=== PATIENT | female | born 1975 | race Hispanic/Latino ===

== ENCOUNTER 2017-11-02 01:20 | Inpatient (IN) | payer OTHER, SELFPAY ==
[2017-11-02] MEDS ORDERED: diphenhydrAMINE 50 MG/ML VIAL ONE (01:41)
[2017-11-02 02:22] LABS: ALT (SGPT) 27 U/L (8-55); AST (SGOT) 44 U/L (5-34); Albumin 4.1 g/dL (3.5-5.0); Alkaline Phosphatase 110 U/L (40-150); Anion Gap 16 mmol/L (10-20); BUN (Urea Nitrogen) 8 mg/dL (7.0-18.7); Bilirubin, Total 0.5 mg/dL (0.2-1.2); Calc. Creatinine Clearance 0 mL/min (70-130); Calcium 9.3 mg/dL (7.8-10.44); Carbon Dioxide 21 mmol/L (22-29); Chloride 101 mmol/L (98-107); Estimated GFR-MDRD 86; Globulin 3.7 g/dL (2.4-3.5); Glucose 103 mg/dL (70-105); Protein, Total 7.8 g/dL (6.0-8.3); Sodium 135 mmol/L (136-145)
[2017-11-02 02:25] LABS: Band 3 % (5-11); CKMB 1.6 ng/mL (0-6.6); Hemoglobin 13.1 g/dL (12.0-16.0); Hypersemented Neutrophil SLIGHT; Lymphocytes 12 % (21-51); MDiff Complete? YES; Mean Corpuscular HGB CONC 34.5 g/dL (32.0-36.0); Mean Corpuscular Hemoglobin 28.6 pg (27.0-31.0); Mean Corpuscular Volume 82.9 fl (81.0-99.0); Mean Platelet Volume 8.1 fL (7.4-10.4); Monocytes 3 % (0-10); Neutrophil 82 % (42-75); Platelet Count 342 thou/uL (130-400); RBC Distribution Width 12.6 % (11.5-14.5); Red Blood Cell (RBC) Count 4.57 mill/uL (4.20-5.40); Troponin I Less than 0.010 ng/mL (< 0.028); White Blood Cell (WBC) Count 26.3 thou/uL (4.8-10.8)
[2017-11-02] MEDS ORDERED: methylPREDNISolone Sod Succ/PF 125 MG/2 ML VIAL ONE (02:29)
[2017-11-02] MEDS ORDERED: Albuterol Sulfate 2.5 mg/0.5 ml Neb ONE ×2 (02:30→03:52)
[2017-11-02] MEDS ORDERED: Potassium Chloride 20 MEQ TAB ONE (02:33)
[2017-11-02] MEDS ORDERED: cefTRIAXone\\ROCEPHIN 1 GM VIAL ONE ×2 (04:14→05:54)
[2017-11-02] MEDS ORDERED: Sodium Chloride 0.9% 100 ML ONE (04:14)
[2017-11-02 04:54] LABS: Troponin I Less than 0.010 ng/mL (< 0.028)
[2017-11-02] MEDS ORDERED: Azithromycin 500 MG VIAL ONE (04:56)
[2017-11-02 05:47] LABS: Bilirubin Negative (Negative); Blood, Urine Small (Negative); Clarity Clear (Clear); Glucose, Urine (Dipstick) Negative (Negative); Leukocyte Negative (Negative); Nitrite Negative (Negative); Protein, Urine (Dipstick) Negative (Neg-Trace)
[2017-11-02 06:01] LABS: Bacteria/HPF None Seen HPF (None Seen); Hyaline Casts/LPF 0-3 HYALINE CAST LPF (0-3 Hyaline); RBC/HPF 0-3 HPF (0-3); Squamous Epithelial 0-3 HPF (0-3); WBC/HPF 0-3 HPF (0-3)
--- NOTE | 2017-11-02 08:03 | RAD ---
CHEST 2 VIEWS: History Cough. Dyspnea. COMPARISON: 09/12/07. FINDINGS: Cardiac silhouette is unremarkable. Pulmonary vasculature is slightly engorged with widespread retic ulonodular interstitial prominence. Mediastinum is midline. No confluent airspace consolidation, pn eumothorax, or pleural fluid. IMPRESSION: Mild pulmonary vascular congestion with widespread reticulonodular interstitial prominence. Cause is not evident. Please see report from subsequently performed CT arteriogram chest. POS: OFF
--- NOTE | 2017-11-02 08:28 | CT ---
PRELIMINARY REPORT/[facility]/EMERGENTY AFTER-HOURS PROCEDURE CT Angiography Chest With Intravenous Contrast CLINICAL HISTORY: 42 years old, female; Signs and symptoms; Cough and shortness of breath; Smoker's cough; Patient HX: Cough and SOB since 1700 yesterday, pt is a smoker and takes high BP with a diuretic TECHNIQUE: Axial computed tomographic angiography images of the chest with intravenous contrast using pulmonary embolism protocol. All CT scans at this facility use one or more dose reduction techniques, viz.: aut omated exposure control; ma/kV adjustment per patient size (including targeted exams where dose is ma tched to indication; i.e. head); or iterative reconstruction technique. Coronal reformatted images were created and reviewed. CONTRAST: 80 mL of [id number] administered intravenously. COMPARISON: No relevant prior studies available. FINDINGS: Pulmonary arteries: Unremarkable. No pulmonary embolism. Aorta: No acute findings. No thoracic aortic aneurysm. Lungs: Extensive symmetric centrally distributed bilateral ground glass opacification in both lungs. No septal thickening, fibrosis, nodules, or bronchial wall thickening. Pleural space: Unremarkable. No significant effusion. No pneumothorax. Heart: Unremarkable. No cardiomegaly. No significant pericardial effusion. No evidence of RV dysfunct ion. Mediastinum: Esophagus is unremarkable. Bones/joints: No acute fracture. No dislocation. Soft tissues: Unremarkable. Lymph nodes: Unremarkable. No enlarged lymph nodes. Liver: Hepatomegaly and hepatic steatosis. Gallbladder and bile ducts: Prior cholecystectomy. IMPRESSION: 1. Extensive symmetric centrally distributed bilateral ground glass opacification in both lungs. Diff erential diagnosis is atypical pulmonary infection, flash hydrostatic pulmonary edema, ARDS, hypersen sitivity pneumonitis, medication toxicity, or pulmonary hemorrhage. Consider pulmonary medicine consu ltation. 2. Hepatomegaly and hepatic steatosis. Thank you for allowing us to participate in the care of your patient. Dictated and Authenticated by: Ravinder Stoddard MD 11/02/2017 5:22 AM Central Time ([place] & [place]) CT ARTERIOGRAM CHEST WITH IV CONTRAST AND 3D MIP IMAGING: DATE: 11/02/17. TIME: Performed on an emergency basis at 0443 hours. HISTORY: Chest pain. Dyspnea. FINDINGS: Findings agree with the preliminary report from [facility]. There is no CT evidence of pulmon johanna embolus. Symmetric bilateral predominantly perihilar ground-glass opacity is nonspecific and may be related to infectious process, pulmonary edema, or hypersensitivity pneumonitis. POS: OFF
[2017-11-02] MEDS ORDERED: Levothyroxine Sodium 100 MCG TAB PO SCH (09:15)
[2017-11-02] MEDS: Sodium Chloride 0.9% 1,000 ML IV SCH ×3 (09:54→21:51)
[2017-11-02] MEDS: Loratadine 10 MG TAB PO SCH (09:54)
[2017-11-02] MEDS: Enoxaparin Sodium 40 MG/0.4 ML SYRINGE SC SCH (09:54)
--- NOTE | 2017-11-02 10:34 | PDOC.FPRHP ---
- History of Present Illness Chief Complaint: Persistent/worsening cough History of Present Illness: Ms. Forbes is a [address] Hernandez who presents as a transfer of care from [facility] ER for hypoxia requiring supplemental O2. She states that she has had a nagging cough for a little while but it acutely got worse at 2200 last night and she could not catch her breath. She states that is scared her so she asked her to take her to the ER. She is not sure if she had any fever but endorses chills. She had otherwise been feeling well and denies sick contacts, recent travel or exposure to allergens/pets/birds. She used to work at a [employer] company making [employer] 20 years ago. 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 She also continues to smoke 1 ppd. She denies any other associated symptoms including n/v/d/rashes/lesions/abdominal pain/chest pain. ED Course: Patient reports being given antibiotics at outside ER. She continued to require supplemental O2. Blood cultures drawn. - Allergies/Adverse Reactions Allergies Allergy/AdvReac Type Severity Reaction Status Date / Time No Known Allergies Allergy Verified 06/12/16 22:43 - Home Medications Medication Instructions Recorded Confirmed Type Levothyroxine Sodium [Synthroid] 100 mcg PO DAILY 06/12/16 11/02/17 History Dextroamphetamine/Amphetamine 30 mg PO BID 11/02/17 11/02/17 History [Adderall] Venlafaxine HCl [Effexor XR] 150 mg PO DAILY 11/02/17 11/02/17 History - History PMHx: Hypothyroidism, depression, anxiety PSHx: Hysterectomy, tubal ligation, cholecystectomy FHx: Allergy-related asthma, denies any DM/HTN/lung disease Social: 1ppd smoker x22 years, denies alcohol or other drug use - Review of Systems General: reports: fever/chills, fatigue. denies: weight/appetite/sleep changes Eyes: denies: eye pain, vision changes ENT: reports: nasal congestion, rhinorrhea Respiratory: reports: cough, congestion, shortness of breath Cardiovascular: denies: chest pain, palpitation, edema, paroxysmal nocturnal dyspnea Gastrointestinal: denies: nausea, vomiting, diarrhea, constipation, abdominal pain Genitourinary: denies: dysuria, polyuria Skin: denies: rashes, lesions Musculoskeletal: denies: pain, swelling Neurological: denies: syncope, weakness Psychological: reports: anxiety, depression - Vital signs BP: [123/83] HR: [83] RR: [20] Tmax: [98.7] Pox: [97]% on [2L] Wt: [87.1kg] - Physical Exam Constitutional: awake, alert and oriented -Constitutional: appears slightly uncomfortable, NC in place HEENT: normocephalic and atraumatic, conjunctiva clear, MMM, oropharynx clear -HEENT: Frontal and maxillary sinus TTP BL Neck: supple, trachea midline Chest: no-tender to palpation, no lesions Heart: RRR, normal S1/S2, no murmurs/rubs/gallops, no edema -Lungs: faint crackles in L lung base, cough with any significant inspiration Abdomen: soft, non-tender Musculoskeletal: normal structure, normal tone Neurological: no focal deficit, CN II-XII intact, normal sensation Skin: no rash/lesions, good turgor, capillary refill <2 seconds Heme/Lymphatic: no unusual bruising or bleeding, no LAD Psychiatric: normal mood and affect, good judgment and insight, intact recent and remote memory FMR H&P: Results - Labs Result Diagrams: 11/02/17 01:45 11/02/17 01:45 Lab results: WBC 26.3 thou/uL (4.8-10.8) H 11/02/17 01:45 Hgb 13.1 g/dL (12.0-16.0) 11/02/17 01:45 Hct 37.9 % (36.0-47.0) 11/02/17 01:45 MCV 82.9 fl (81.0-99.0) 11/02/17 01:45 Plt Count 342 thou/uL (130-400) 11/02/17 01:45 Band Neuts % (Manual) 3 % (5-11) L 11/02/17 01:45 Sodium 135 mmol/L (136-145) L 11/02/17 01:45 Potassium 3.0 mmol/L (3.5-5.1) L 11/02/17 01:45 Chloride 101 mmol/L (98-107) 11/02/17 01:45 Carbon Dioxide 21 mmol/L (22-29) L 11/02/17 01:45 BUN 8 mg/dL (7.0-18.7) 11/02/17 01:45 Creatinine 0.74 mg/dL (0.6-1.1) 11/02/17 01:45 Glucose 103 mg/dL (70-105) 11/02/17 01:45 Lactic Acid 1.9 mmol/L (0.5-2.2) 11/02/17 04:15 Calcium 9.3 mg/dL (7.8-10.44) 11/02/17 01:45 Total Bilirubin 0.5 mg/dL (0.2-1.2) 11/02/17 01:45 AST 44 U/L (5-34) H 11/02/17 01:45 ALT 27 U/L (8-55) 11/02/17 01:45 Alkaline Phosphatase 110 U/L (40-150) 11/02/17 01:45 CK-MB (CK-2) 1.6 ng/mL (0-6.6) 11/02/17 01:45 B-Natriuretic Peptide Less than 10.0 pg/mL (0-100) 11/02/17 01:45 Serum Total Protein 7.8 g/dL (6.0-8.3) 11/02/17 01:45 Albumin 4.1 g/dL (3.5-5.0) 11/02/17 01:45 Urine Ketones Negative mg/dL (Negative) 11/02/17 05:35 Urine Blood Small (Negative) H 11/02/17 05:35 Urine Nitrite Negative (Negative) 11/02/17 05:35 Ur Leukocyte Esterase Negative (Negative) 11/02/17 05:35 Urine RBC 0-3 HPF (0-3) 11/02/17 05:35 Urine WBC 0-3 HPF (0-3) 11/02/17 05:35 Ur Squamous Epith Cells 0-3 HPF (0-3) 11/02/17 05:35 Urine Bacteria None Seen HPF (None Seen) 11/02/17 05:35 FMR H&P: A/P - Problem List (1) Atypical pneumonia Current Visit: Yes Status: Acute Code(s): J18.9 - PNEUMONIA, UNSPECIFIED ORGANISM (2) Hypothyroidism Current Visit: Yes Status: Acute Code(s): E03.9 - HYPOTHYROIDISM, UNSPECIFIED (3) Anxiety Current Visit: Yes Status: Acute Code(s): F41.9 - ANXIETY DISORDER, UNSPECIFIED (4) Depression Current Visit: Yes Status: Acute Code(s): F32.9 - MAJOR DEPRESSIVE DISORDER , SINGLE EPISODE, UNSPECIFIED (5) HTN (hypertension) Current Visit: Yes Status: Acute Code(s): I10 - ESSENTIAL (PRIMARY) HYPERTENSION (6) HLD (hyperlipidemia) Current Visit: Yes Status: Acute Code(s): E78.5 - HYPERLIPIDEMIA, UNSPECIFIED (7) ADHD (attention deficit hyperactivity disorder) Current Visit: Yes Status: Acute (8) Allergic rhinitis Current Visit: Yes Status: Acute Code(s): J30.9 - ALLERGIC RHINITIS, UNSPECIFIED - Plan 1. Atypical PNA - Continue supplemental O2 to maintain sat 92% - Encouraged smoking cessation which she states she is ready to do - Duonebs PRN - Levaquin per Dr. Atkinson for total of 1 week pending course - BCx pending 2. Sinusitis - TTP in frontal and maxillary sinus - Has seen ENT outpatient who recommend balloon cath - Abx as above, flonase and claritin - Encouraged hydration 3. Tobacco abuse - Encouraged smoking cessation which she states she is ready to do - Nicotine patch 4. Hypothyroidism - Home levothyroxine, per last refill patient was on 125 mcg - Last TSH checked 1 year ago, will recheck 5. Allergic rhinitis - Home flonase and zyrtec OTC 6. Anxiety/depression - Home Effexor XR 150 mg 7. Hypertension - Home HCTZ 25 mg 8. ADHD - On Adderall at home 20mg BID - Will hold unless patient symptomatic during hospitalization 9. HLD - OP f/u with Dr. Dc PPX: Lovenox Attending Addendum - Attending Addendum Date/Time: 11/02/17 5329 I personally evaluated the patient and discussed the management with Dr. Arellano and Dr. Naga Matson. I agree with the History, Examination, Assessment and Plan documented above with any addition or exceptions noted below. She is a 42 y/o female smoker reports a 2 day hx of non-productive cough, dyspnea, malaise and chills, but no fever. No chest pain or hemoptysis. Did not have flu shot this year. Agrees she needs to quit tobacco. BP: 123/83 P: 83 R: 20 T: 98.7 Pox: 97% on 2L/NC Wt: 87.1kg General: Alert oriented female with intermittent cough in no acute distress. HEENT: normocephalic and atraumatic, conjunctiva clear, MMM, oropharynx clear Neck: supple, no adenopathy, trachea midline Chest: no-tender to palpation, no lesions Heart: RRR, normal S1/S2, no murmurs/rubs/gallops, no edema Lungs: equal breath sounds with no rales or rhonci on my exam. She coughs with deep breathing. Abdomen: soft, non-tender Musculoskeletal: norfull ROM all 4 extremities, no edema. Neurological: no focal deficit, CN II-XII intact, grossly normal motor and sensory exam. Skin: no rash or lesions, good turgor, capillary refill <2 seconds Heme/Lymphatic: no unusual bruising or lymphadenopathy Psychiatric: normal mood, memory and affect, good judgment and insight, CXR appears normal. However, she has bilateral lower lobe infiltrates visible on Chest CT. A: Atypical Pneumonia P: Continue Levaquin. Consult Pulmonary medicine. Dr. Atkinson. Blood Cultures pending. Discussed smoking cessation. Marcia
[2017-11-02] MEDS: Venlafaxine HCl XR 75 MG CAP PO SCH (11:40)
--- NOTE | 2017-11-02 12:30 | CON ---
DATE OF CONSULTATION: 11/02/2017 CONSULTING PHYSICIAN: [facility]. REASON FOR CONSULTATION: Pneumonia, ICU admission. HISTORY OF PRESENT ILLNESS: This is a pleasant 42-year-old female, who presented to the [place] [facility] room with 1 day of increasing cough with clear mucoid sputum production and shortness of breat h. She has also had headaches, sinus tenderness, and problems with nasal drainage. She was worked u p with a CT, which showed bilateral pulmonary infiltrates. Characterizes wispy, ground-glass appeara nce and alveolar pattern distribution, sparing the periphery of the lungs. Interestingly, her D-dime r was negative. PAST MEDICAL HISTORY: Hypertension, hypothyroidism. PAST SURGICAL HISTORY: Cholecystectomy, hysterectomy, and bilateral tubal ligation. PSYCHIATRIC HISTORY: Remarkable for depression, anxiety. SOCIAL HISTORY: She is a 1 pack per day smoker. She does not consume alcohol, does not use illicit drugs. Lives at home. 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 No known exposures other than some household pet s, but no exposure to birds. ALLERGIES: None. MEDICATIONS PRIOR TO ADMISSION: Synthroid 100 mcg daily, Effexor 37.5 mg daily, and Vyvanse 40 mg ev angel morning. REVIEW OF SYSTEMS: Twelve-point review is otherwise negative. PHYSICAL EXAMINATION: VITAL SIGNS: Blood pressure 123/83, pulse 83, respirations 20, O2 saturation 97% on nasal cannula, a nd temperature is 98.7 earlier this morning. GENERAL: She is awake, alert, in no distress. HEENT: Pupils react. Sclerae icteric. She has mild sinus tenderness ethmoid and maxillary regions. Oropharynx, no tonsillar exudate, no erythema. NECK: Slight thyroid enlargement, no JVD, no bruits. LUNGS: Few crackles best heard posteriorly. CARDIOVASCULAR: S1 and S2, regular. ABDOMEN: Soft, nontender, nondistended. EXTREMITIES: No clubbing, cyanosis, or edema. NEUROLOGIC: Grossly intact throughout. SKIN: No changes. LABORATORY DATA: D-dimer 0.34. White blood cell count 26.3, hematocrit 37.9, platelet count 342 wit h 80% neutrophils, 3% bands. Sodium 135, potassium 3.0, chloride 101, CO2 of 21, BUN 8, creatinine 0 .7, glucose 103. Chest x-ray were reviewed. ASSESSMENT: Bilateral atypical pneumonia, most likely consistent with either mycoplasma or chlamydia . PLAN: 1. The patient can be transferred to the floor. She needs to starting antibiotics, breathing treatm ents. 2. Nicotine replacement therapy. 3. Further disposition to follow.
[2017-11-02] MEDS: Fluticasone Propionate Nasal Spray 16 gm Bottle NASAL SCH (14:03)
[2017-11-02] MEDS: Nicotine 14 MG PATCH TD SCH (14:06)
[2017-11-02] MEDS: Acetaminophen 500 MG TAB PO PRN (17:28)
[2017-11-02] MEDS ORDERED: Melatonin 3 MG TAB PO PRN (20:28)
[2017-11-02] MEDS ORDERED: ALPRAZolam 1 MG TAB PO SCH (20:30)
--- NOTE | 2017-11-03 04:57 | PDOC.FM ---
- Subjective Subjective: Patient doing well this AM. No significant overnight events. She states that her breathing has gotten better since admission, but she is still requiring O2. Her eyes have been very watery and irritated which she attributes to allergies. She states she has had a lingering cough, but it got worse on Wednesday to the point that she started to feel acutely short of breath. She still has a cough, but it has improved since that time. - Objective MAR Reviewed: Yes Vital Signs & Weight: Vital Signs (12 hours) Temp Pulse Resp BP Pulse Ox 11/03/17 02:23 85 20 96 11/03/17 01:27 97 11/03/17 00:00 98.5 F 86 18 102/66 93 L 11/02/17 22:47 89 20 97 11/02/17 20:00 98.1 F 99 22 H 117/71 93 L 11/02/17 19:06 91 20 96 Weight Weight 87.1 g Most Recent Monitor Data Heart Rate from ECG 79 NIBP 114/73 NIBP BP-Mean 84 Respiration from ECG 20 SpO2 95 I&O: 11/01/17 11/02/17 11/03/17 06:59 06:59 06:59 Intake Total 1999 Output Total 0 Balance 1999 Result Diagrams: 11/03/17 04:06 11/03/17 04:06 EKG Reviewed by me: No Radiology Reviewed by me: Yes <Sydnie Hawk - Last Filed: 11/03/17 08:33> - Objective Vital Signs & Weight: Vital Signs (12 hours) Temp Pulse Resp BP Pulse Ox 11/03/17 10:57 75 20 95 11/03/17 08:00 98.5 F 76 16 95 11/03/17 07:27 98.5 F 76 16 125/74 95 11/03/17 06:41 77 20 94 L 11/03/17 04:00 98.6 F 77 18 117/77 94 L 11/03/17 02:23 85 20 96 Weight Weight 87.1 g Most Recent Monitor Data Heart Rate from ECG 79 NIBP 114/73 NIBP BP-Mean 84 Respiration from ECG 20 SpO2 95 I&O: 11/02/17 11/03/17 11/04/17 06:59 06:59 06:59 Intake Total 3500 720 Output Total 0 Balance 3500 720 Result Diagrams: 11/03/17 04:06 11/03/17 04:06 <Olamide Dc - Last Filed: 11/03/17 14:19> Phys Exam - Physical Examination Constitutional: NAD HEENT: moist MMs Watery eyes Neck: supple rales on right upper and lower lobes Cardiovascular: RRR, no significant murmur Gastrointestinal: soft, non-tender, no distention, positive bowel sounds Musculoskeletal: no edema, pulses present Neurological: non-focal Psychiatric: normal affect Skin: no rash, cap refill <2 seconds <KennSydnie saavedra - Last Filed: 11/03/17 08:33> Dx/Plan (1) Atypical pneumonia Code(s): J18.9 - PNEUMONIA, UNSPECIFIED ORGANISM Status: Acute (2) HTN (hypertension) Code(s): I10 - ESSENTIAL (PRIMARY) HYPERTENSION Status: Acute QualifierTitle: Hypertension type: essential hypertension Qualified Code( s): I10 - Essential (primary) hypertension (3) Hypothyroidism Code(s): E03.9 - HYPOTHYROIDISM, UNSPECIFIED Status: Chronic (4) HLD (hyperlipidemia) Code(s): E78.5 - HYPERLIPIDEMIA, UNSPECIFIED Status: Chronic (5) Anxiety Code(s): F41.9 - ANXIETY DISORDER, UNSPECIFIED Status: Chronic (6) ADHD (attention deficit hyperactivity disorder) Status: Chronic (7) Depression Code(s): F32.9 - MAJOR DEPRESSIVE DISORDER, SINGLE EPISODE, UNSPECIFIED Status : Chronic - Plan Plan: 1. Atypical PNA - Continue supplemental O2 to maintain sat 92%; patient requiring 2.5 L - Encouraged smoking cessation - Junior VILLALOBOS - [place] per Dr. Atkinson for total of 1 week pending course - BCx pending - Pulm consulted; appreciate recs - Consider alternative diagnoses based on pt. work history 2. Sinusitis - TTP in frontal and maxillary sinuses - Has seen ENT outpatient who recommend balloon cath - Abx as above, flonase and claritin - Encouraged hydration - Improved today 3. Tobacco abuse - Encouraged smoking cessation which she states she is ready to do - Nicotine patch 4. Hypothyroidism - Home levothyroxine, per last refill patient was on 125 mcg - Last TSH checked 1 year ago - TSH 0.588 5. Allergic rhinitis - Home flonase and zyrtec OTC 6. Anxiety/depression - Home Effexor XR 150 mg 7. Hypertension - Home HCTZ 25 mg 8. ADHD - On Adderall at home 20mg BID - Will hold unless patient symptomatic during hospitalization 9. HLD - OP f/u with Dr. Dc PPX: Lovenox Dispo: Continue treatment for atypical pneumonia. Continue to monitor for improvement in O2 saturation. <Sydnie Hawk - Last Filed: 11/03/17 08:33> Attending Addendum - Attending Addendum Date/Time: 11/03/17 6162 I personally evaluated the patient and discussed the management with Dr. Hawk. I agree with the History, Examination, Assessment and Plan documented above with any addition or exceptions noted below. The patient is feeling a little better. Oxygen has weaned to 1.5 liters. Will continue levaquin. <Olamide Dc - Last Filed: 11/03/17 14:19>
[2017-11-03 05:14] LABS: #Lymphocytes 3.4 thou/uL (1.20-3.40); #Monocytes 0.6 thou/uL (0.11-0.59); #Neutrophils 17.4 thou/uL (1.40-6.50); %Basophils 0.1 % (0.0-1.0); %Eosinophils 0.2 % (0.0-10.0); %Lymphocytes 15.6 % (21.0-51.0); %Monocytes 2.8 % (0.0-10.0); %Neutrophils 81.2 % (42.0-75.0); Hemoglobin 11.3 g/dL (12.0-16.0); Mean Corpuscular HGB CONC 34.5 g/dL (32.0-36.0); Mean Corpuscular Hemoglobin 29.5 pg (27.0-31.0); Mean Corpuscular Volume 85.5 fl (81.0-99.0); Mean Platelet Volume 8.3 fL (7.4-10.4); Platelet Count 299 thou/uL (130-400); RBC Distribution Width 12.8 % (11.5-14.5); Red Blood Cell (RBC) Count 3.85 mill/uL (4.20-5.40); White Blood Cell (WBC) Count 21.5 thou/uL (4.8-10.8)
[2017-11-03] MEDS: Levothyroxine Sodium 100 MCG TAB PO SCH (05:19)
[2017-11-03 05:40] LABS: Anion Gap 12 mmol/L (10-20); BUN (Urea Nitrogen) 10 mg/dL (7.0-18.7); Calc. Creatinine Clearance 0 mL/min (70-130); Calcium 8.9 mg/dL (7.8-10.44); Carbon Dioxide 24 mmol/L (22-29); Chloride 107 mmol/L (98-107); Estimated GFR-MDRD Greater than 90; Glucose 129 mg/dL (70-105); Potassium 3.5 mmol/L (3.5-5.1); Sodium 139 mmol/L (136-145)
[2017-11-03] MEDS: Enoxaparin Sodium 40 MG/0.4 ML SYRINGE SC SCH (08:51)
[2017-11-03] MEDS: Fluticasone Propionate Nasal Spray 16 gm Bottle NASAL SCH (08:51)
[2017-11-03] MEDS: Venlafaxine HCl XR 75 MG CAP PO SCH (08:52)
[2017-11-03] MEDS: Nicotine 14 MG PATCH TD SCH (08:52)
[2017-11-03] MEDS: Loratadine 10 MG TAB PO SCH (08:52)
[2017-11-03] MEDS: Hydrochlorothiazide 25 MG TAB PO SCH (08:52)
[2017-11-03] MEDS ORDERED: hydrALAZINE 25 MG TAB PO SCH (09:00)
--- NOTE | 2017-11-03 10:53 | PDOC.PULPN ---
Progress Note: Subj/Obj - Subjective Date: 11/03/17 Time: 10:52 Narrative: Feels better - Objective Allergies/Adverse Reactions: Allergies Allergy/AdvReac Type Severity Reaction Status Date / Time No Known Allergies Allergy Verified 06/12/16 22:43 MAR Reviewed: Yes Vital Signs: Vital Signs Temp 98.5 F 11/03/17 08:00 Pulse 76 11/03/17 08:00 Resp 16 11/03/17 08:00 BP 125/74 11/03/17 07:27 Pulse Ox 95 11/03/17 08:00 Intake & Output 11/02/17 11/03/17 11/03/17 18:59 06:59 18:59 Intake Total 1999 1500 360 Output Total 0 Balance 1999 1500 360 Weight 3.072 oz Intake: Intake, IV Amount 800 1200 Oral 1200 300 360 Output: Urine 0 Other: Voiding Method Toilet Toilet Toilet # Measured Voids 3 # Unmeasured Voids 4 Progress Note: Exam - Physical Exam Constitutional: NAD HEENT: PERRLA Neck: no nodes Cardiovascular: RRR Respiratory: rales Gastrointestinal: soft, non-tender Musculoskeletal: no edema Neurological: non-focal Lymphatic: no nodes Psychiatric: normal affect, A&O x 3 Skin: no rash, normal turgor Progress Note: Data - Labs Result Diagrams: 11/03/17 04:06 11/03/17 04:06 Progress Note: A/P - Problems (1) Atypical pneumonia Current Visit: Yes Status: Acute Code(s): J18.9 - PNEUMONIA, UNSPECIFIED ORGANISM - Plan Plan: Complete 7 to 10 days of levaquin Needs f/u CXR in 3 weeks Smoking cessation Can go home when hypoxemia is controlled (>90% on RA)
[2017-11-03] MEDS: Sodium Chloride 0.9% 1,000 ML IV SCH ×2 (15:55→20:23)
[2017-11-03] MEDS: Acetaminophen 500 MG TAB PO PRN (20:29)
[2017-11-03 21:28] VITALS: BP 128/74
[2017-11-04] MEDS: Levothyroxine Sodium 100 MCG TAB PO SCH (05:13)
[2017-11-04] MEDS: Sodium Chloride 0.9% 1,000 ML IV SCH (05:16)
--- NOTE | 2017-11-04 06:31 | PDOC.FM ---
- Subjective Subjective: Patient doing well this AM. No significant overnight events. Patient's breathing has improved. She denies any chest pain, n/v, or lower extremity swelling. She still has a productive cough, which improves after breathing treatments. She has been going without oxygen and satting above 90%. - Objective MAR Reviewed: Yes Vital Signs & Weight: Vital Signs (12 hours) Temp Pulse Resp BP Pulse Ox 11/04/17 04:00 98.9 F 94 L 11/04/17 00:00 98.7 F 94 L 11/03/17 22:30 89 16 96 11/03/17 20:00 99.1 F 89 18 128/74 92 L 11/03/17 18:15 75 16 95 Weight Weight 87.1 g Most Recent Monitor Data Heart Rate from ECG 79 NIBP 114/73 NIBP BP-Mean 84 Respiration from ECG 20 SpO2 95 I&O: 11/02/17 11/03/17 11/04/17 06:59 06:59 06:59 Intake Total 3500 960 Output Total 0 Balance 3500 960 Result Diagrams: 11/03/17 04:06 11/03/17 04:06 EKG Reviewed by me: No Radiology Reviewed by me: Yes <Sydnie Hawk - Last Filed: 11/04/17 08:23> - Objective Vital Signs & Weight: Vital Signs (12 hours) Temp Pulse Resp Pulse Ox 11/04/17 10:32 82 20 96 11/04/17 08:00 98.9 F 82 20 96 Weight Weight 87.1 g Most Recent Monitor Data Heart Rate from ECG 79 NIBP 114/73 NIBP BP-Mean 84 Respiration from ECG 20 SpO2 95 I&O: 11/03/17 11/04/17 11/05/17 06:59 06:59 06:59 Intake Total 3500 2520 360 Output Total 0 Balance 3500 2520 360 Result Diagrams: 11/03/17 04:06 11/03/17 04:06 <Olamide Dc - Last Filed: 11/04/17 18:55> Phys Exam - Physical Examination Constitutional: NAD HEENT: moist MMs Neck: supple Rales in right lower lung base. Improved from prior exam. Cardiovascular: RRR, no significant murmur Gastrointestinal: soft, non-tender, no distention, positive bowel sounds Musculoskeletal: no edema, pulses present Neurological: non-focal, moves all 4 limbs Psychiatric: normal affect Skin: no rash, cap refill <2 seconds <KennSydnie - Last Filed: 11/04/17 08:23> Dx/Plan (1) Atypical pneumonia Code(s): J18.9 - PNEUMONIA, UNSPECIFIED ORGANISM Status: Acute (2) HTN (hypertension) Code(s): I10 - ESSENTIAL (PRIMARY) HYPERTENSION Status: Acute QualifierTitle: Hypertension type: essential hypertension Qualified Code( s): I10 - Essential (primary) hypertension (3) Hypothyroidism Code(s): E03.9 - HYPOTHYROIDISM, UNSPECIFIED Status: Chronic (4) HLD (hyperlipidemia) Code(s): E78.5 - HYPERLIPIDEMIA, UNSPECIFIED Status: Chronic (5) Anxiety Code(s): F41.9 - ANXIETY DISORDER, UNSPECIFIED Status: Chronic (6) ADHD (attention deficit hyperactivity disorder) Status: Chronic (7) Depression Code(s): F32.9 - MAJOR DEPRESSIVE DISORDER, SINGLE EPISODE, UNSPECIFIED Status : Chronic - Plan Plan: 1. Atypical PNA - Continue supplemental O2 to maintain sat 90%; patient weaned to 1.5L yesterday - Can discharge home once maintaining O2 sats >90% on RA - Encouraged smoking cessation - Junior CHAUDHRYN - [place] per Dr. Atkinson for total of 1 week - BCx neg to date - Pulm consulted; appreciate recs - BNP >200. Echo pending to further evaluate cause of hypoxia and cough - Will need follow up imaging in a few months to evaluate resolution of infection 2. Sinusitis - TTP in frontal and maxillary sinuses; improved - Has seen ENT outpatient who recommends balloon cath - Abx as above, flonase and claritin - Encouraged hydration 3. Tobacco abuse - Encouraged smoking cessation which she states she is ready to do - Nicotine patch 4. Hypothyroidism - Home levothyroxine, per last refill patient was on 125 mcg - Last TSH checked 1 year ago - TSH 0.588 5. Allergic rhinitis - Home flonase and zyrtec OTC 6. Anxiety/depression - Home Effexor XR 150 mg 7. Hypertension - Home HCTZ 25 mg 8. ADHD - On Adderall at home 20 mg BID - Will hold unless patient symptomatic during hospitalization 9. HLD - OP f/u with Dr. Dc PPX: Lovenox Dispo: Continue treatment for atypical pneumonia. Patient stable for discharge home per pulm when O2 sats >90% on RA. <Sydnie Hawk - Last Filed: 11/04/17 08:23> Attending Addendum - Attending Addendum Date/Time: 11/04/17 3659 I personally evaluated the patient and discussed the management with Dr. Hawk. I agree with the History, Examination, Assessment and Plan documented above with any addition or exceptions noted below. Patient has weaned off O2 and is maintaining sats. Will d/c on oral levaquin. Pt will f/u with me next week. <Olamide Dc - Last Filed: 11/04/17 18:55>
[2017-11-04 06:42] VITALS: TEMP 98.9
[2017-11-04] MEDS: Venlafaxine HCl XR 75 MG CAP PO SCH (09:12)
[2017-11-04] MEDS: Fluticasone Propionate Nasal Spray 16 gm Bottle NASAL SCH (09:14)
[2017-11-04] MEDS: Hydrochlorothiazide 25 MG TAB PO SCH (09:14)
[2017-11-04] MEDS: Loratadine 10 MG TAB PO SCH (09:14)
[2017-11-04] MEDS: Enoxaparin Sodium 40 MG/0.4 ML SYRINGE SC SCH (09:14)
[2017-11-04] MEDS: Nicotine 14 MG PATCH TD SCH (09:16)
--- NOTE | 2017-11-05 10:13 | DIS-2 ---
DATE OF ADMISSION: 11/02/2017 DATE OF DISCHARGE: 11/04/2017 ADMITTING ATTENDING: Phoenix Ritchie M.D. DISCHARGE ATTENDING: Olamide Dc M.D. RESIDENT: Sydnie Hawk D.O. CONSULTATION: Dylan Atkinson M.D., of Pulmonology. PROCEDURES PERFORMED: 1. Chest x-ray: Mild pulmonary vascular congestion with widespread reticulonodular interstitial pro minence. 2. Chest/thorax CTA: Extensive symmetric centrally distributed bilateral ground glass opacification in both lungs. Differential includes atypical pulmonary infection, flash hydrostatic pulmonary lorrie a, acute respiratory distress syndrome, hypersensitivity pneumonitis, medication toxicity or pulmonar y hemorrhage. Hepatomegaly and hepatic steatosis are noted on CT. PRIMARY DIAGNOSES: 1. Acute hypoxic respiratory failure secondary to atypical pneumonia. 2. Atypical pneumonia. 3. Acute bacterial sinusitis. SECONDARY DIAGNOSES: 1. Hypothyroidism. 2. Tobacco abuse. 3. Allergic rhinitis. 4. Anxiety and depression. 5. Hypertension. 6. Attention deficit hyperactivity disorder. 7. Hyperlipidemia. DISCHARGE MEDICATIONS: 1. Levofloxacin 750 mg oral every morning for 8 days. 2. Hydrochlorothiazide 25 mg oral daily. 3. Levothyroxine 100 mcg oral daily. 4. Adderall 30 mg oral twice daily. 5. Venlafaxine 150 mg oral daily. DISCONTINUED MEDICATIONS: None. HISTORY OF PRESENT ILLNESS AND HOSPITAL COURSE: This is a 42-year-old female who is a patie nt of Dr. Dc, so was transferred from [facility] ER for hypoxia, requiring supplement al oxygen. The patient states she had a nagging cough for several weeks, but acutely got worse at 22 00 on the night prior to admission. It got to the point where she was having difficulty catching her breath. She was scared, so she asked her to take her to the emergency room. She did not re port having any fever, but did endorse chills. She had otherwise been feeling well. Denies any sick contacts, recent travel or exposure to allergens/birds. She used to work at a [employer] 20 years ago. 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 The patient endorses smoking 1 pack pe r day smoking history. She denies any associated symptoms including nausea, vomiting, diarrhea, rash , lesions, abdominal pain or chest pain. The patient reports being on antibiotics at an outside ER, she continued to require supplemental oxygen. Blood cultures were drawn prior to antibiotics. The patient remained stable throughout the course of her hospital stay. She continued to improve sym ptomatically. The patient was started on Levaquin and was evaluated by Pulmonology, who agreed that this looked to be more of an atypical pneumonia. Pulmonology recommendations were to continue Levaqu in for a course of 10 days as well as have a repeat chest x-ray in 3 weeks to verify improvement of l ryan condition on imaging. The patient was able to be weaned from oxygen during her hospital stay, sh e was satting 96% on room air prior to discharge. The patient was counseled on smoking cessation and she seemed agreeable to giving this a try. Blood cultures were negative at 48 hours. The patient also did present with a frontal and maxillary sinus tenderness on palpation. She has see n ENT in the past who recommended balloon catheterization of the sinuses. Levofloxacin should cover organisms responsible for sinusitis and she was encouraged to keep hydrated. The patient was cleared by Pulmonology for discharge home with the above-mentioned recommendations. Since patient was satting 96% on room air, she was stable for discharge with close follow up with Dr. Dc, her primary care physician. Dr. Dc was present during rounds and had advised her secr etary to contact patient for appointment within 3 days of discharge from hospital and it was advised by Pulmonology to have a repeat chest x-ray 3 weeks from discharge to ensure resolution of lung findi ngs. DISPOSITION: Stable. DISCHARGE INSTRUCTIONS: 1. Location: Home. 2. Activity: As tolerated. 3. Diet: Regular. 4. Followup: The patient is to follow up with Dr. Dc within 3-7 days of discharge from [facility]. Dr. Dc is aware that the patient was recently in the hospital and has scheduled her an appoi ntment per clinic. This was discussed with the patient at length and she was in understanding and ag reeable with the plan.
== END 2017-11-04 13:45 | disposition home or self-care (01) | DRG 193 ==
LOC: SCSER 01:20 → ERHOLD 05:45 → CCU 07:21 → T4-A 10:45
PROVIDERS: ADMIT Emergency Medicine; ATTEND Emergency Medicine
DX: J18.9 Pneumonia, unspecified organism (principal); J96.01 Acute respiratory failure with hypoxia; F17.210 Nicotine dependence, cigarettes, uncomplicated; J01.90 Acute sinusitis, unspecified; B96.89 Other specified bacterial agents as the cause of diseases classified elsewhere; I10 Essential (primary) hypertension; E78.5 Hyperlipidemia, unspecified; E03.9 Hypothyroidism, unspecified; F90.9 Attention-deficit hyperactivity disorder, unspecified type; F41.8 Other specified anxiety disorders; J30.9 Allergic rhinitis, unspecified
CPT/HCPCS: 36415; 71046; 71275; 80048; 80053; 81003; 81015; 82553; 83605; 83880; 84443; 84484; 85025; 85379; 87040; 87804; 93005; 93306; 94640; 94760; 96365; 96367; 96375; 96376; A4216; J0456; J0696; J1200; J1650; J1956; J2930; J7050; J7611; J7620